=== PATIENT | female | born 1985 | race Caucasian/White ===

== ENCOUNTER 2016-09-27 19:31 | Emergency (ER) | payer BC ==
--- NOTE | ~2016-09-27 | ER ---
PATIENT'S NAME: BEAU [facility] AGE: 31 Y [address] ROOM: [place] [address] LOCATION: [facility] ADMIT DATE: 09/27/2016 ER/Outpatient Report DISCHARGE DATE: 09/27/2016 FAMILY PHYSICIAN: Cliff Deng MD ATTENDING PHYSICIAN: Noris Alejandra HISTORY OF PRESENT ILLNESS: A 31-year-old female who presents today with a chief complaint of some vaginal spotting. She says it started 2 hours ago, it is very light. She was wearing a panty liner and said that she noticed it felt heavy, so went to change it. Currently, she says the bleeding has stopped. She did have some mild cramping earlier. Currently, has no pain. She says she has already had a screening ultrasound done, which showed an IUP. She had no ectopic and she had her blood type done too, but she cannot remember the actual blood type, but says that she does not have to get RhoGAM. No other complaints at this time. HISTORY: She is currently 12 weeks. Estimated due date is April 14, 2017. She is G3, P1-0-1-1. She has had one history of a miscarriage at 6 weeks in April, thought to be because of low progesterone. PAST SURGICAL HISTORY: None. SOCIAL HISTORY: None. MEDICATIONS: and progesterone. ALLERGIES: PENICILLIN. REVIEW OF SYSTEMS: Reviewed by me are negative with the exception of those discussed in HPI. PHYSICAL EXAMINATION: VITAL SIGNS: She is 5 feet 6 inches, she has weighed 61.7 kilos, blood pressure 141/73, heart rate 89, respiratory rate 16, temperature 99.2, saturating 100% on room air. GENERAL: The patient is not in any acute distress. She is alert, interactive, speaking in full sentences. HEART: Heart rate is regular rate and rhythm. ABDOMEN: Soft, nontender, nondistended. PATIENT'S NAME: BEAU [facility]TS [facility] AGE: 31 Y [address] ROOM: [place] [address] LOCATION: [facility] ADMIT DATE: 09/27/2016 ER/Outpatient Report DISCHARGE DATE: 09/27/2016 FAMILY PHYSICIAN: Cliff Deng MD ATTENDING PHYSICIAN: Noris Alejandra LABORATORY DATA: Bedside ultrasound done. I am able to visualize IUP with heart rate and movement. The patient was reassured. I did tell her that I know this is what baby looks like right now, but I cannot predict what will happen eventually and she is not more than 20 weeks at this time. So, there is nothing too much we can do besides monitoring. She understands this and she will call Dr. Deng, her FITTING SUPERVISOR, tomorrow to follow up. She understands the reasons to come back to the ER sooner. IMPRESSION: Threatened miscarriage. MD FRED GOMEZ/j luis /[id number] d: 09/28/16 0303 t: 10/27/16 1101, OUTPATIENT REPORT
== END 2016-09-27 19:59 | disposition disaster alternative care site (69) ==
LOC: GMED 19:31
DX: O20.0 Threatened abortion (principal); Z3A.12 12 weeks gestation of pregnancy; Z88.0 Allergy status to penicillin; Z79.899 Other long term (current) drug therapy

== ENCOUNTER → 2016-12-31 | Outpatient (CLI) | payer BC | END | disposition disaster alternative care site (69) | LOC: GLAB 08:00 | DX: Z36 Encounter for antenatal screening of mother (principal) ==